=== PATIENT | male | born 1990 | race Hispanic/Latino ===

== ENCOUNTER 2017-06-15 18:03 | Emergency (ER) | payer BC ==
[2017-06-15 18:47] VITALS: TEMP 98; O2SAT 100
--- NOTE | 2017-06-15 19:19 | ED PDOC ---
HPI: General Adult Time Seen by Provider: 06/15/17 19:17 Chief Complaint (Nursing): Dizziness/Lightheaded Chief Complaint (Provider): dizziness History Per: Patient Additional Complaint(s): 27-year-old male presents to emergency department with intermittent dizziness that started 3 weeks ago. Patient denies any associated fever or chills. He has had intermittent headaches as well. Patient has had mild nasal and sinus congestion. He denies chest pain, shortness of breath or dyspnea on exertion. No associated nausea, vomiting, abdominal pain or diarrhea. Patient was seen yesterday at [facility] urgent care and had lab work obtained which was normal as per patient. He was instructed to obtain CT head for further evaluation. Patient was given a prescription for CT head to be completed as an outpatient but he decided to come to the ER today for "a second opinion." Patient feels mildly dizzy upon arrival, denies any vision changes, nausea, fever or chills. Patient states on occasion he has sensation of room spinning. PMD: none Past Medical History Reviewed: Historical Data, Nursing Documentation, Vital Signs Vital Signs: Last Vital Signs Temp 98.0 F 06/15/17 18:42 Pulse 61 06/15/17 18:42 Resp 16 06/15/17 18:42 BP 133/85 06/15/17 18:42 Pulse Ox 100 06/15/17 21:07 - Medical History PMH: No Chronic Diseases - Surgical History Surgical History: No Surg Hx - Family History Family History: States: No Known Family Hx - Living Arrangements Living Arrangements: With Family - Social History Current smoker - smoking cessation education provided: No Alcohol: Social Drugs: Denies - Home Medications Home Medications: Ambulatory Orders Medication Instructions Recorded Meclizine [Meclizine*] 25 mg PO Q6 PRN #30 tab 06/15/17 - Allergies Allergies/Adverse Reactions: Allergies Allergy/AdvReac Type Severity Reaction Status Date / Time shrimp Allergy RASH Verified 06/15/17 18:42 Review of Systems ROS Statement: Except As Marked, All Systems Reviewed And Found Negative Constitutional: Negative for: Fever, Chills, Weakness, Malaise ENT: Positive for: Nose Congestion (and sinus congestion). Negative for: Ear Pain Cardiovascular: Negative for: Chest Pain, Palpitations, Edema, Light Headedness Respiratory: Negative for: Cough, Shortness of Breath, SOB with Exertion, Wheezing Gastrointestinal: Negative for: Nausea, Vomiting Neurological: Positive for: Headache, Dizziness. Negative for: Weakness, Numbness, Incoordination, Change in Speech, Confusion, Seizures, Altered Mental Status Physical Exam - Reviewed Nursing Documentation Reviewed: Yes Vital Signs Reviewed: Yes - Physical Exam Appears: Positive for: Well, Non-toxic, No Acute Distress Skin: Negative for: Rash Eye Exam: Positive for: Normal appearance ENT: Positive for: Nasal Congestion (mild nasal and sinus congestion noted) Neck: Positive for: Normal Cardiovascular/Chest: Positive for: Regular Rate, Rhythm Respiratory: Positive for: Normal Breath Sounds. Negative for: Respiratory Distress Extremity: Positive for: Normal ROM Neurologic/Psych: Positive for: Alert, business solutions consultant II-XII (grossly intact), Oriented, Gait (steady). Negative for: Motor/Sensory Deficits, Aphasia, Facial Droop - Laboratory Results Result Diagrams: 06/15/17 20:50 06/15/17 20:50 - ECG Interpretation Of ECG: Sinus bradycardia 56 bpm, no acute finding, reviewed by PA and ED attending O2 Sat by Pulse Oximetry: 100 Pulse Ox Interpretation: Normal - Other Rad CT head X-Ray: Read By Radiologist X-Ray Interpretation: no acute intracranial pathology CXR X-Ray: Interpreted by Me, Viewed By Me X-Ray Interpretation: no acute finding Medical Decision Making Medical Decision Makin-year-old male with intermittent dizziness for 3 weeks Plan: EKG CXR CBC CMP IVF CT head PO meclizine Patient reports improvement to dizziness after meclizine. Patient aware of all diagnostic testing results, all questions answered. Prescription for meclizine given. Patient was advised to follow up with primary care doctor. Disposition - Clinical Impression Clinical Impression: Dizziness, Acute labyrinthitis - Patient ED Disposition Is Patient to be Admitted: No Counseled Patient/Family Regarding: Studies Performed, Diagnosis, Need For Followup, Rx Given - Disposition Referrals: Sagar Roberson MD [Staff Provider] - Disposition: Routine/Home Disposition Time: 21:45 Condition: STABLE Additional Instructions: Take prescription meds as directed as needed for dizziness. Follow-up with primary doctor for further evaluation. Prescriptions: Meclizine [Meclizine*] 25 mg PO Q6 PRN #30 tab PRN Reason: Dizziness Instructions: Labyrinthitis, Dizziness, Nonvertigo, (DC) Forms: Client Outlook (Estonian) Results - Lab Results Lab Results: 06/15/17 06/15/17 20:50 20:50 WBC 7.7 RBC 5.38 Hgb 15.7 Hct 46.7 MCV 87.0 MCH 29.3 MCHC 33.7 RDW 12.5 Plt Count 167 MPV 10.8 Neut % (Auto) 57.4 Lymph % (Auto) 31.3 [place]comb % (Auto) 8.1 Eos % (Auto) 2.2 Baso % (Auto) 1.0 Neut # (Auto) 4.4 Lymph # (Auto) 2.4 [place]comb # (Auto) 0.6 Eos # (Auto) 0.2 Baso # (Auto) 0.1 Sodium 141 Potassium 4.1 Chloride 97 L Carbon Dioxide 30 Anion Gap 18 BUN 21 H Creatinine 0.9 Est GFR ( Amer) > 60 Est GFR (Non-Af Amer) > 60 Random Glucose 93 Calcium 9.7 Total Bilirubin 0.6 AST 32 ALT 37 Alkaline Phosphatase 60 Troponin I < 0.0120 Total Protein 8.2 Albumin 4.7 Globulin 3.5 Albumin/Globulin Ratio 1.4
[2017-06-15] MEDS ORDERED: Sodium Chloride 0.9% 1,000 ML IV STA (19:39)
--- NOTE | 2017-06-15 20:59 | CT ---
EXAM: CT Head Without Intravenous Contrast CLINICAL HISTORY: 27 years old, male; Pain and signs and symptoms; Dizziness; Headache; Headache not specified; Additional info: Dizziness, headahce TECHNIQUE: Axial computed tomography images of the head/brain without intravenous contrast. All CT scans at this facility use one or more dose reduction techniques, viz.: automated exposure control; ma/kV adjustment per patient size (including targeted exams where dose is matched to indication; i.e. head); or iterative reconstruction technique. Coronal and sagittal reformatted images were created and reviewed. COMPARISON: No relevant prior studies available. FINDINGS: Brain: No intracranial hemorrhage. No mass. No definite edema. Ventricles: No hydrocephalus. Bones/joints: No acute fracture. Soft tissues: Unremarkable. Sinuses: Scattered mild mucosal thickening. Mastoid air cells: No mastoid effusion. Orbits: Unremarkable as visualized. IMPRESSION: 1. No definite acute intracranial abnormality. 2. Incidental/non-acute findings are described above.
[2017-06-15 21:03] LABS: BASO # 0.1 K/uL (0.0-0.2); EOS # 0.2 K/uL (0.0-0.7); EOS % 2.2 % (0.0-4.0); HEMOGLOBIN 15.7 g/dL (12.0-18.0); LYMPH # 2.4 K/uL (1.0-4.3); LYMPH % 31.3 % (20.0-40.0); MEAN CORPUSCULAR HEMOGLOBIN 29.3 pg (27.0-31.0); MEAN CORPUSCULAR HGB CONC 33.7 g/dL (33.0-37.0); MEAN PLATELET VOLUME 10.8 fl (7.2-11.7); MONO # 0.6 K/uL (0.0-0.8); MONO % 8.1 % (0.0-10.0); NEUT # 4.4 K/uL (1.8-7.0); NEUT % 57.4 % (50.0-75.0); NRBC % 0.1 % (0.0-0.0); RBC 5.38 Mil/uL (4.40-5.90); RED CELL DISTRIBUTION WIDTH 12.5 % (11.5-14.5); WHITE BLOOD COUNT 7.7 K/uL (4.8-10.8)
[2017-06-15 21:14] LABS: ALB/GLOB RATIO 1.4 (1.0-2.1); ALBUMIN 4.7 g/dL (3.5-5.0); ALT/SGPT 37 U/L (21-72); AST/SGOT 32 U/L (17-59); BLOOD UREA NITROGEN 21 mg/dl (9-20); CALCIUM 9.7 mg/dL (8.4-10.2); GFR AFRICAN-AMERICAN > 60; GFR NON-AFRICAN AMERICAN > 60
[2017-06-15 22:10] VITALS: BP 145/88; PULSE 72; RESP 20
--- NOTE | 2017-06-15 23:22 | RAD ---
HISTORY: clearance COMPARISON: No prior. FINDINGS: LUNGS: No active pulmonary disease. PLEURA: No significant pleural effusion identified, no pneumothorax apparent. CARDIOVASCULAR: Normal. OSSEOUS STRUCTURES: No significant abnormalities. VISUALIZED UPPER ABDOMEN: Normal. OTHER FINDINGS: None. IMPRESSION: No acute cardiopulmonary disease appreciated.
--- NOTE | 2017-06-16 18:05 | CARD ---
APPROVED REPORT EKG Measurement Heart [id number] <Conclusion> Sinus bradycardia Otherwise normal ECG
== END 2017-06-15 22:10 | disposition home or self-care (01) ==
LOC: H.ER 18:03
DX: R42 Dizziness and giddiness (principal); H83.09 Labyrinthitis, unspecified ear
CPT/HCPCS: 70450; 71045; 80053; 84484; 85025; 93005; 96360; 99284; J7040

== ENCOUNTER 2018-05-08 04:33 | Inpatient (IN) | payer BC, OTHER ==
[2018-05-08 04:56] VITALS: BMI 26.2
[2018-05-08] MEDS ORDERED: Piperacillin/Tazobact 3.375 GM in Sodium Chloride 0.9% 100 ML IVPB STA (05:10)
[2018-05-08] MEDS ORDERED: Sodium Chloride 0.9% 1,000 ML IV STA (05:11)
[2018-05-08 05:33] LABS: VENOUS BLOOD GAS BASE EXCESS 5.3 mmol/L (0.0-2.0); VENOUS BLOOD GAS PCO2 54 mmHg (40-60); VENOUS BLOOD GAS PO2 24 mm/Hg (30-55); VENOUS BLOOD PH 7.38 (7.32-7.43)
[2018-05-08] MEDS ORDERED: Piperacillin/Tazobact 3.375 gm Inj IVPB ONE (05:34)
--- NOTE | 2018-05-08 05:36 | ED PDOC ---
HPI: Abdomen Time Seen by Provider: 05/08/18 04:58 Chief Complaint (Nursing): Abdominal Pain History Per: Patient History/Exam Limitations: no limitations Onset/Duration Of Symptoms: Days (1) Current Symptoms Are (Timing): Still Present Location Of Pain/Discomfort: RLQ Additional Complaint(s): 23 year old with no PMHx presenting with lower abdominal pain, right sided, states it began 24 hours ago, associated with nausea and decreased appetite. No urinary symptoms. No fevers, chills, vomiting, diarrhea. States he feels like he has to have a BM but cannot go. PMD: [place] Past Medical History Reviewed: Historical Data, Nursing Documentation, Vital Signs Vital Signs: Last Vital Signs Temp 97.7 F 05/08/18 04:56 Pulse 68 05/08/18 04:56 Resp 18 05/08/18 04:56 BP 127/78 05/08/18 04:56 Pulse Ox 100 05/08/18 04:56 - Medical History PMH: No Chronic Diseases - Family History Family History: States: Unknown Family Hx - Home Medications Home Medications: Ambulatory Orders Medication Instructions Recorded RX: No Known Home Med 05/08/18 - Allergies Allergies/Adverse Reactions: Allergies Allergy/AdvReac Type Severity Reaction Status Date / Time shrimp Allergy RASH Verified 05/08/18 04:56 Review of Systems ROS Statement: Except As Marked, All Systems Reviewed And Found Negative Gastrointestinal: Positive for: Nausea, Abdominal Pain Physical Exam - Reviewed Nursing Documentation Reviewed: Yes Vital Signs Reviewed: Yes - Physical Exam Appears: Positive for: Well, Non-toxic, No Acute Distress Head Exam: Positive for: ATRAUMATIC, NORMAL INSPECTION, NORMOCEPHALIC Skin: Positive for: Normal Color, Warm, DRY Eye Exam: Positive for: EOMI, Normal appearance, PERRL ENT: Positive for: Normal ENT Inspection Neck: Positive for: Normal, Painless ROM Cardiovascular/Chest: Positive for: Regular Rate, Rhythm Respiratory: Positive for: CNT, Normal Breath Sounds Gastrointestinal/Abdominal: Positive for: Normal Exam, Soft, Tenderness (RLQ tenderness) Back: Positive for: Normal Inspection Extremity: Positive for: Normal ROM Neurologic/Psych: Positive for: Alert, Oriented - Laboratory Results Result Diagrams: 05/08/18 05:52 05/08/18 05:52 Lab Results: pO2 24 mm/Hg (30-55) L 05/08/18 05:29 VBG pH 7.38 (7.32-7.43) 05/08/18 05:29 VBG pCO2 54 mmHg (40-60) 05/08/18 05:29 VBG HCO3 27.5 mmol/L 05/08/18 05:29 VBG Total CO2 33.6 mmol/L (22-28) H 05/08/18 05:29 VBG O2 Sat (Calc) 45.4 % (40-65) 05/08/18 05:29 VBG Base Excess 5.3 mmol/L (0.0-2.0) H 05/08/18 05:29 VBG Potassium 4.0 mmol/L (3.6-5.2) 05/08/18 05:29 Sodium 136.0 mmol/L (132-148) 05/08/18 05:29 Chloride 102.0 mmol/L (98-107) 05/08/18 05:29 Glucose 129 mg/dL (75-110) H 05/08/18 05:29 Lactate 1.0 mmol/L (0.7-2.1) 05/08/18 05:29 FiO2 21.0 % 05/08/18 05:29 - ECG O2 Sat by Pulse Oximetry: 100 Pulse Ox Interpretation: Normal Medical Decision Making Medical Decision MakinAM Patient presenting with RLQ pain --Most likely appendicitis --Will check labs, CT --Toradol, fluids, ABx --Will re-eval 0700 Patient has acute appendicitis on Ct Case discussed with Dr. Lee Patient NPO, ABx already administered along with IVF Case discussed with Dr. Dumas for admission Disposition - Clinical Impression Clinical Impression: Appendicitis - Patient ED Disposition Is Patient to be Admitted: Yes Discussed With : John Lee - Disposition Disposition Time: 07:00 Condition: STABLE Patient Signed Over To: Fran Gaming
[2018-05-08 06:13] LABS: BASO % 0.2 % (0.0-2.0); EOS % 0.1 % (0.0-4.0); HEMOGLOBIN 15.1 g/dL (12.0-18.0); LYMPH # 0.6 K/uL (1.0-4.3); LYMPH % 4.7 % (20.0-40.0); MEAN CELL VOLUME 87.5 fl (80.0-94.0); MEAN CORPUSCULAR HGB CONC 34.3 g/dL (33.0-37.0); MEAN PLATELET VOLUME 12.2 fl (7.2-11.7); MONO # 0.6 K/uL (0.0-0.8); MONO % 4.6 % (0.0-10.0); NEUT # 11.1 K/uL (1.8-7.0); NEUT % 90.4 % (50.0-75.0); PLATELET COUNT 159 K/uL (130-400); RBC 5.02 Mil/uL (4.40-5.90); RED CELL DISTRIBUTION WIDTH 12.2 % (11.5-14.5); WHITE BLOOD COUNT 12.3 K/uL (4.8-10.8)
[2018-05-08 06:22] LABS: ALB/GLOB RATIO 1.3 (1.0-2.1); ALT/SGPT 51 U/L (21-72); AST/SGOT 51 U/L (17-59); BLOOD UREA NITROGEN 19 mg/dl (9-20); GFR NON-AFRICAN AMERICAN > 60
[2018-05-08] MEDS ORDERED: Sodium Chloride 0.9% 50 ML IV ONE (06:26)
[2018-05-08] MEDS ORDERED: Iohexol 300 100 ML IJ ONE (06:27)
--- NOTE | 2018-05-08 07:48 | CP.PCM.CON ---
<Rj Tamez D - Last Filed: 05/08/18 07:44> History of Present Illness - History of Present Illness History of Present Illness: SURGERY NOTE FOR DR. BURNS Reason:appendicitis 27M presents with abdominal pain. Patient states pain stated yesterday approximately 12 hours ago. He states it was tender in the right lower quadrant initially and that is where the pain currently is. He denies any fevers or chills, states the last time he ate was 12 hours ago. He denies any change in b owel function. PMH: denies PSH: Right knee/right hand ORIF Social: denies tobacco use, does not drink alcohol anymore, did socially prior, denies illicit drugs Allergies: Shrimp Past Patient History - Past Social History Smoking Status: Never Smoked - PSYCHIATRIC Hx Substance Use: No - SURGICAL HISTORY Hx Surgeries: No - ANESTHESIA Hx Anesthesia: No Meds Allergies/Adverse Reactions: Allergies Allergy/AdvReac Type Severity Reaction Status Date / Time shrimp Allergy RASH Verified 05/08/18 04:56 Physical Exam - Constitutional Appears: Non-toxic, No Acute Distress - ENT Exam ENT Exam: Mucous Membranes Moist - Respiratory Exam Respiratory Exam: Clear to Auscultation Bilateral, NORMAL BREATHING PATTERN - Cardiovascular Exam Cardiovascular Exam: REGULAR RHYTHM, +S1, +S2 - GI/Abdominal Exam GI & Abdominal Exam: Soft, Tenderness (right lower quadrant). absent: Distended, Firm, Guarding, Rebound, Rigid - Extremities Exam Extremities exam: Negative for: pedal edema, tenderness - Neurological Exam Neurological exam: Alert, Oriented x3 - Psychiatric Exam Psychiatric exam: Normal Affect, Normal Mood - Skin Skin Exam: Dry, Intact, Normal Color, Warm Results - Vital Signs Recent Vital Signs: Last Vital Signs Temp 98.7 F 05/08/18 07:28 Pulse 61 05/08/18 07:28 Resp 16 05/08/18 07:28 BP 116/65 05/08/18 07:28 Pulse Ox 99 05/08/18 07:28 - Labs Result Diagrams: 05/08/18 05:52 05/08/18 05:52 Labs: Laboratory Results - last 24 hr 05/08/18 05/08/18 05/08/18 05:29 05:52 05:52 WBC 12.3 H D RBC 5.02 Hgb 15.1 Hct 44.0 MCV 87.5 MCH 30.0 MCHC 34.3 RDW 12.2 Plt Count 159 MPV 12.2 H Neut % (Auto) 90.4 H Lymph % (Auto) 4.7 L [place] % (Auto) 4.6 Eos % (Auto) 0.1 Baso % (Auto) 0.2 Neut # (Auto) 11.1 H Lymph # (Auto) 0.6 L [place] # (Auto) 0.6 Eos # (Auto) 0.0 Baso # (Auto) 0.0 pO2 24 L VBG pH 7.38 VBG pCO2 54 VBG HCO3 27.5 VBG Total CO2 33.6 H VBG O2 Sat (Calc) 45.4 VBG Base Excess 5.3 H VBG Potassium 4.0 Sodium 136.0 139 Chloride 102.0 99 Glucose 129 H Lactate 1.0 FiO2 21.0 Potassium 3.9 Carbon Dioxide 28 Anion Gap 16 BUN 19 Creatinine 0.8 Est GFR ( Amer) > 60 Est GFR (Non-Af Amer) > 60 Random Glucose 124 H Calcium 10.0 Total Bilirubin 0.7 AST 51 ALT 51 Alkaline Phosphatase 61 Total Protein 8.6 H Albumin 5.0 Globulin 3.7 Albumin/Globulin Ratio 1.3 Venous Blood Potassium 4.0 Blood Type Antibody Screen BBK History Checked 05/08/18 05:52 WBC RBC Hgb Hct MCV MCH MCHC RDW Plt Count MPV Neut % (Auto) Lymph % (Auto) [place] % (Auto) Eos % (Auto) Baso % (Auto) Neut # (Auto) Lymph # (Auto) [place] # (Auto) Eos # (Auto) Baso # (Auto) pO2 VBG pH VBG pCO2 VBG HCO3 VBG Total CO2 VBG O2 Sat (Calc) VBG Base Excess VBG Potassium Sodium Chloride Glucose Lactate FiO2 Potassium Carbon Dioxide Anion Gap BUN Creatinine Est GFR ( Amer) Est GFR (Non-Af Amer) Random Glucose Calcium Total Bilirubin AST ALT Alkaline Phosphatase Total Protein Albumin Globulin Albumin/Globulin Ratio Venous Blood Potassium Blood Type A POSITIVE Antibody Screen Negative BBK History Checked No verified bt Assessment & Plan - Assessment and Plan (Free Text) Assessment: 27M with acute appendicitis Plan: - NPO - IVF - Pain control - Antibiotics - Plan for OR this AM Further recs discuss with Dr. Saman Tamez, PGY3 <Leo Burns - Last Filed: 05/08/18 10:00> Results - Vital Signs Recent Vital Signs: Last Vital Signs Temp 98.7 F 05/08/18 08:18 Pulse 61 05/08/18 08:18 Resp 16 05/08/18 08:18 BP 116/65 05/08/18 08:18 Pulse Ox 99 05/08/18 07:28 - Labs Result Diagrams: 05/08/18 05:52 05/08/18 05:52 Labs: Laboratory Results - last 24 hr 05/08/18 05/08/18 05/08/18 05:29 05:52 05:52 WBC 12.3 H D RBC 5.02 Hgb 15.1 Hct 44.0 MCV 87.5 MCH 30.0 MCHC 34.3 RDW 12.2 Plt Count 159 MPV 12.2 H Neut % (Auto) 90.4 H Lymph % (Auto) 4.7 L [place] % (Auto) 4.6 Eos % (Auto) 0.1 Baso % (Auto) 0.2 Neut # (Auto) 11.1 H Lymph # (Auto) 0.6 L [place] # (Auto) 0.6 Eos # (Auto) 0.0 Baso # (Auto) 0.0 PT INR APTT pO2 24 L VBG pH 7.38 VBG pCO2 54 VBG HCO3 27.5 VBG Total CO2 33.6 H VBG O2 Sat (Calc) 45.4 VBG Base Excess 5.3 H VBG Potassium 4.0 Sodium 136.0 139 Chloride 102.0 99 Glucose 129 H Lactate 1.0 FiO2 21.0 Potassium 3.9 Carbon Dioxide 28 Anion Gap 16 BUN 19 Creatinine 0.8 Est GFR ( Amer) > 60 Est GFR (Non-Af Amer) > 60 Random Glucose 124 H Calcium 10.0 Total Bilirubin 0.7 AST 51 ALT 51 Alkaline Phosphatase 61 Total Protein 8.6 H Albumin 5.0 Globulin 3.7 Albumin/Globulin Ratio 1.3 Venous Blood Potassium 4.0 Blood Type Antibody Screen BBK History Checked 05/08/18 05/08/18 05:52 07:44 WBC RBC Hgb Hct MCV MCH MCHC RDW Plt Count MPV Neut % (Auto) Lymph % (Auto) [place] % (Auto) Eos % (Auto) Baso % (Auto) Neut # (Auto) Lymph # (Auto) [place] # (Auto) Eos # (Auto) Baso # (Auto) PT 13.2 H INR 1.2 APTT 34.4 pO2 VBG pH VBG pCO2 VBG HCO3 VBG Total CO2 VBG O2 Sat (Calc) VBG Base Excess VBG Potassium Sodium Chloride Glucose Lactate FiO2 Potassium Carbon Dioxide Anion Gap BUN Creatinine Est GFR ( Amer) Est GFR (Non-Af Amer) Random Glucose Calcium Total Bilirubin AST ALT Alkaline Phosphatase Total Protein Albumin Globulin Albumin/Globulin Ratio Venous Blood Potassium Blood Type A POSITIVE Antibody Screen Negative BBK History Checked No verified bt Assessment & Plan - Assessment and Plan (Free Text) Plan: agree with resident consult 27yo M with one day history of right lower quadrant pain worst with any movement. Pain only relieved in ED with pain meds. denies any fever, chills, nausea, vomiting. PSHx: no previous abdominal surgeries PMHx: denies gen: awake, alert, resting comfortably, HEENT: MMM, trachea midline, neck supple no acute respiratory distress abd: soft, ND, no rebound or guarding, +mcburneys a/p 27yo M with acute appendicitis -IVF -IV abx -pain control -to OR for laparoscopic appendectomy possible open. Pt was explained risk and benefits of procedure consent obtained at bedside.
[2018-05-08] MEDS ORDERED: Propofol 10 mg/ml Inj (20 ML) ONE (08:19)
[2018-05-08] MEDS ORDERED: Succinylcholine Chloride 20 mg/ml Syr (5 ml) IV ONE (08:20)
[2018-05-08] MEDS ORDERED: Rocuronium 10 mg/ml (5 ml) ONE (08:20)
[2018-05-08 08:32] LABS: INR 1.2; PROTHROMBIN TIME 13.2 Seconds (9.8-13.1)
[2018-05-08 08:35] LABS: PARTIAL THROMBOPLASTIN TIME 34.4 Seconds (25.6-37.1)
[2018-05-08] MEDS: Bupivacaine 0.5% Inj(30mL) ONE ×2 (09:16→09:47)
[2018-05-08] MEDS ORDERED: Lactated Ringer's 1,000 ML IV ONE (09:17)
[2018-05-08] MEDS: Lactated Ringer's 1,000 ML IV SCH ×2 (10:06→18:00)
--- NOTE | 2018-05-08 10:10 | PCM.SURG1 ---
Surgeon's Initial Post Op Note - Surgeon's Notes Surgeon: MD Saman Sawmill Equipment Operator: Dashawn, PGY3 Pre-Operative Diagnosis: Acute Appendicitis Operative Findings: inflamed appendix Post-Operative Diagnosis: Acute appendicitis Operation Performed: Laparoscopic Appendectomy Specimen/Specimens Removed: Appendix Estimated Blood Loss: EBL {In ML}: 10 Date of Surgery/Procedure: 05/08/18 Time of Surgery/Procedure: 10:10
[2018-05-08] MEDS ORDERED: Morphine 4 MG/ML VIAL IVP PRN (10:11)
[2018-05-08 10:30] LABS: LYMPHOCYTE 6 % (20-50); MONOCYTE 3 % (0-10); NEUTROPHIL 91 % (42-75); PLATELET ESTIMATE NORMAL (NORMAL); TOTAL CELLS COUNTED 100
--- NOTE | 2018-05-08 10:47 | CT ---
Date of service: 05/08/2018 PROCEDURE: CT Abdomen and Pelvis with contrast HISTORY: RLQ pain COMPARISON: None. TECHNIQUE: Contrast dose: 95 mL Omnipaque 300 Radiation dose: Total exam DLP = 475.64 mGy-cm. This CT exam was performed using one or more of the following dose reduction techniques: Automated exposure control, adjustment of the mA and/or kV according to patient size, and/or use of iterative reconstruction technique. FINDINGS: LOWER THORAX: Unremarkable. LIVER: Diffuse hepatic steatosis. No gross lesion or ductal dilatation. GALLBLADDER AND BILE DUCTS: Unremarkable. PANCREAS: Unremarkable. No gross lesion or ductal dilatation. SPLEEN: Unremarkable. ADRENALS: Unremarkable. No mass. KIDNEYS AND URETERS: Unremarkable. No hydronephrosis. No solid mass. VASCULATURE: Unremarkable. No aortic aneurysm. No aortic atherosclerotic calcification or mural plaque present. BOWEL: Unremarkable. No obstruction. No gross mural thickening. APPENDIX: Dilated hyperenhancing appendix measuring up to 9 mm with surrounding inflammatory change. PERITONEUM: Unremarkable. No free fluid. No free air. LYMPH NODES: Unremarkable. No enlarged lymph nodes. BLADDER: Unremarkable. REPRODUCTIVE: Unremarkable. BONES: No acute fracture. OTHER FINDINGS: None. IMPRESSION: Acute uncomplicated appendicitis.
[2018-05-08] MEDS: Piperacillin/Tazobact 3.375 GM in Sodium Chloride 0.9% 100 ML IVPB SCH ×2 (15:38→21:26)
[2018-05-08] MEDS: Oxycodone/Acetaminophen 5/325 mg Tab PO PRN ×2 (15:42→21:25)
[2018-05-08 16:17] VITALS: RESP 20
--- NOTE | 2018-05-08 18:14 | CP.PCM.HP ---
Past Patient History - Past Medical History & Family History Past Medical History?: Yes - Past Social History Smoking Status: Never Smoked - PULMONARY Hx Respiratory Disorders: Yes (bronchitis) - PSYCHIATRIC Hx Substance Use: No - SURGICAL HISTORY Hx Surgeries: No - ANESTHESIA Hx Anesthesia: No Meds Allergies/Adverse Reactions: Allergies Allergy/AdvReac Type Severity Reaction Status Date / Time shrimp Allergy RASH Verified 05/08/18 04:56 Results - Vital Signs Recent Vital Signs: Last Vital Signs Temp 98.2 F 05/08/18 16:00 Pulse 60 05/08/18 16:00 Resp 20 05/08/18 16:00 BP 109/49 L 05/08/18 16:00 Pulse Ox 100 05/08/18 16:00 - Labs Result Diagrams: 05/08/18 05:52 05/08/18 05:52 Labs: Laboratory Results - last 24 hr 05/08/18 05/08/18 05/08/18 05:29 05:52 05:52 WBC 12.3 H D RBC 5.02 Hgb 15.1 Hct 44.0 MCV 87.5 MCH 30.0 MCHC 34.3 RDW 12.2 Plt Count 159 MPV 12.2 H Neut % (Auto) 90.4 H Lymph % (Auto) 4.7 L [place] % (Auto) 4.6 Eos % (Auto) 0.1 Baso % (Auto) 0.2 Neut # (Auto) 11.1 H Lymph # (Auto) 0.6 L [place] # (Auto) 0.6 Eos # (Auto) 0.0 Baso # (Auto) 0.0 Neutrophils % (Manual) 91 H Lymphocytes % (Manual) 6 L Monocytes % (Manual) 3 Platelet Estimate Normal RBC Morphology Normal PT INR APTT pO2 24 L VBG pH 7.38 VBG pCO2 54 VBG HCO3 27.5 VBG Total CO2 33.6 H VBG O2 Sat (Calc) 45.4 VBG Base Excess 5.3 H VBG Potassium 4.0 Sodium 136.0 139 Chloride 102.0 99 Glucose 129 H Lactate 1.0 FiO2 21.0 Potassium 3.9 Carbon Dioxide 28 Anion Gap 16 BUN 19 Creatinine 0.8 Est GFR ( Amer) > 60 Est GFR (Non-Af Amer) > 60 Random Glucose 124 H Calcium 10.0 Total Bilirubin 0.7 AST 51 ALT 51 Alkaline Phosphatase 61 Total Protein 8.6 H Albumin 5.0 Globulin 3.7 Albumin/Globulin Ratio 1.3 Venous Blood Potassium 4.0 Blood Type Antibody Screen BBK History Checked 05/08/18 05/08/18 05:52 07:44 WBC RBC Hgb Hct MCV MCH MCHC RDW Plt Count MPV Neut % (Auto) Lymph % (Auto) [place] % (Auto) Eos % (Auto) Baso % (Auto) Neut # (Auto) Lymph # (Auto) [place] # (Auto) Eos # (Auto) Baso # (Auto) Neutrophils % (Manual) Lymphocytes % (Manual) Monocytes % (Manual) Platelet Estimate RBC Morphology PT 13.2 H INR 1.2 APTT 34.4 pO2 VBG pH VBG pCO2 VBG HCO3 VBG Total CO2 VBG O2 Sat (Calc) VBG Base Excess VBG Potassium Sodium Chloride Glucose Lactate FiO2 Potassium Carbon Dioxide Anion Gap BUN Creatinine Est GFR ( Amer) Est GFR (Non-Af Amer) Random Glucose Calcium Total Bilirubin AST ALT Alkaline Phosphatase Total Protein Albumin Globulin Albumin/Globulin Ratio Venous Blood Potassium Blood Type A POSITIVE Antibody Screen Negative BBK History Checked No verified bt Assessment & Plan (1) Acute appendicitis Status: Acute (2) S/P laparoscopic appendectomy Status: Acute
--- NOTE | 2018-05-08 21:05 | OP ---
PROCEDURE DATE: 05/08/2018 PREOPERATIVE DIAGNOSIS: Acute appendicitis. POSTOPERATIVE DIAGNOSIS: Acute appendicitis. PROCEDURE: Laparoscopic appendectomy. SURGEON: Leo Davison MD GLEASON GEAR GENERATOR: Rj Tamez DO ANESTHESIA: General. IV FLUIDS: Crystalloids. ESTIMATED BLOOD LOSS: 5 mL. INTRAOPERATIVE FINDINGS: Acute appendicitis. SPECIMEN: Appendix. BRIEF HISTORY: This is a 27-year-old male who presented to the ER with one day history of worsening right lower quadrant pain, worse with any type of movement. The patient did not have any other associated symptoms. No nausea, no vomiting, no fevers or chills. The patient is young and healthy. The patient was found to have acute appendicitis on a CT scan. He was given IV antibiotics and prepped for the operating room for laparoscopic appendectomy, possible open. Surgical consent was obtained prior to the procedure. The patient was explained the risks and benefits of procedure, not limited to bleeding, infection, possible abscess formation, injury to surrounding structures. The patient agreed and consent was obtained. DESCRIPTION OF PROCEDURE: On date of procedure, the patient was brought to the operating room and he was placed supine. The patient was then placed under general endotracheal anesthesia. A Hoffman catheter was placed under sterile condition. At this point, the patient was prepped and draped in a usual sterile fashion. The patient was not given any further prophylactic antibiotics as he had already received a dose in the ER. After an adequate timeout, a 5 mm incision was made to the infraumbilical area and using an open Daniel technique, the abdomen was entered. At this point, a 5-mm port was placed into the abdominal cavity and the abdomen was insufflated to 15 mmHg using CO2. The patient tolerated the insufflation well. At this point, a 5-mm laparoscope was inserted into the abdominal cavity. A diagnostic laparoscopy was performed, no gross injury from initial port site insertion was identified. At this point, we placed two additional ports, one 5-mm port to the suprapubic area along with a 10-mm port to the left lower quadrant. All the ports were placed under direct visualization. We then began the operation. We did note an inflamed appendix to the right lower quadrant. The appendix was adherent to the abdominal wall. Prior to beginning our dissection, we did have to lyse an adhesion to the abdominal wall to the right mid abdomen. We then proceeded to identify the appendix. We were able to mobilize the appendix to identify the base. The appendix was grabbed using graspers, and then using a [place] dissector, we were able to create a window at the base of the appendix. At this point, we decided to use an Endo MICAELA 45-mm load to transect the appendix at the base. We then proceeded to transect the mesoappendix using a LigaSure. Once the appendix was isolated, it was placed on an EndoCatch bag. At the point, we proceeded to inspect the right lower quadrant. There was no active bleeding at the staple line. There were no other gross abnormalities seen around the mesentery. We then proceeded to remove the EndoCatch bag under direct visualization. At this point, we used a 0 Vicryl UR-6 stitch to close the fascia at the left lower quadrant wound along with a 0 Vicryl stitch to close the fascia at the umbilicus. We then used a 4-0 Monocryl to reapproximate the laparoscopic incision sites. Local anesthetic was applied to the port sites and Dermabond was placed over the skin incisions. The patient tolerated the procedure well. He was extubated and brought to recovery without any complication. The Hoffman catheter was removed. At the end of the procedure, there was an adequate count to all instruments, lap pads and needles. Leo Davison MD TAE
[2018-05-09 05:57] VITALS: O2SAT 98
[2018-05-09 06:26] LABS: BASO % 0.3 % (0.0-2.0); EOS # 0.1 K/uL (0.0-0.7); EOS % 1.1 % (0.0-4.0); HEMOGLOBIN 12.8 g/dL (12.0-18.0); LYMPH # 1.6 K/uL (1.0-4.3); LYMPH % 23.4 % (20.0-40.0); MEAN CELL VOLUME 90.9 fl (80.0-94.0); MEAN CORPUSCULAR HEMOGLOBIN 29.5 pg (27.0-31.0); MEAN CORPUSCULAR HGB CONC 32.5 g/dL (33.0-37.0); MEAN PLATELET VOLUME 12.2 fl (7.2-11.7); MONO # 0.5 K/uL (0.0-0.8); MONO % 8.1 % (0.0-10.0); NEUT # 4.5 K/uL (1.8-7.0); NEUT % 67.1 % (50.0-75.0); NRBC % 0.1 % (0.0-0.0); RBC 4.33 Mil/uL (4.40-5.90); RED CELL DISTRIBUTION WIDTH 12.2 % (11.5-14.5); WHITE BLOOD COUNT 6.7 K/uL (4.8-10.8)
[2018-05-09 06:32] LABS: BLOOD UREA NITROGEN 10 mg/dl (9-20); CALCIUM 8.5 mg/dL (8.4-10.2); GFR NON-AFRICAN AMERICAN > 60
[2018-05-09] MEDS: Piperacillin/Tazobact 3.375 GM in Sodium Chloride 0.9% 100 ML IVPB SCH ×3 (08:49→11:45)
[2018-05-09] MEDS: Oxycodone/Acetaminophen 5/325 mg Tab PO PRN (08:52)
[2018-05-09 09:01] VITALS: BP 114/63; PULSE 79; TEMP 99.2
--- NOTE | 2018-05-09 09:05 | CP.PCM.PN ---
Subjective - Date & Time of Evaluation Date of Evaluation: 05/09/18 Time of Evaluation: 09:03 - Subjective Subjective: seen at bedside, no overnight events. Pt had a tmax this am of 100.6 currently afebrile. Pt tolerated diet this morning but no nausea or vomiting. +flatus, no BM. Reports incisional pain. Objective - Vital Signs/Intake and Output Vital Signs (last 24 hours): Temp Pulse Resp BP Pulse Ox 99.2 F 79 20 114/63 98 05/09/18 08:30 05/09/18 08:30 05/09/18 08:30 05/09/18 08:30 05/09/18 08:30 - Medications Medications: Current Medications Acetaminophen (Tylenol 325mg Tab) 650 mg PO Q6 PRN PRN Reason: Fever >100.4 F Piperacillin Sod/Tazobactam (Sod 3.375 gm/ Sodium Chloride) 100 mls @ 100 mls/hr IVPB Q6 CHRIS; Protocol Last Admin: 05/09/18 08:50 Dose: 100 mls/hr Lactated Ringer's (Lactated Ringer's) 1,000 mls @ 125 mls/hr IV .Q8H CHRIS Last Admin: 05/08/18 18:00 Dose: 125 mls/hr Morphine Sulfate (Morphine) 4 mg IVP Q4 PRN PRN Reason: Pain, severe (8-10) Ondansetron HCl (Zofran Inj) 4 mg IVP Q4 PRN PRN Reason: Nausea/Vomiting Oxycodone/Acetaminophen (Percocet 5/325 Mg Tab) 1 tab PO Q6 PRN PRN Reason: Pain, moderate (4-7) Stop: 05/11/18 10:12 Last Admin: 05/09/18 08:52 Dose: 1 tab - Labs Labs: 05/09/18 05:19 05/09/18 05:19 PT 13.2 Seconds (9.8-13.1) H 05/08/18 07:44 INR 1.2 05/08/18 07:44 APTT 34.4 Seconds (25.6-37.1) 05/08/18 07:44 - Constitutional Appears: Well, Non-toxic, No Acute Distress - Head Exam Head Exam: ATRAUMATIC, NORMAL INSPECTION, NORMOCEPHALIC - Eye Exam Eye Exam: EOMI, Normal appearance - ENT Exam ENT Exam: absent: Mucous Membranes Dry - GI/Abdominal Exam GI & Abdominal Exam: Soft, Normal Bowel Sounds. absent: Tenderness Additional comments: soft, ND, lap port incisions c/d/i, localized tenderness over incisions - Extremities Exam Extremities Exam: Calf Tenderness, Full ROM Assessment and Plan - Assessment and Plan (Free Text) Assessment: s/o laparoscopic appendectomy -cont diet -monitor for fever -if tolerates lunch and no further fever, pt stable for dc -will dc home on augmentin -percocet prn pain f/u in office with Dr. Davison
--- NOTE | 2018-05-09 10:02 | CP.PCM.DIS ---
Provider - Provider Date of Admission: 05/08/18 07:03 Attending physician: Christin Dumas MD Time Spent in preparation of Discharge (in minutes): 40 Hospital Course - Lab Results Lab Results: Micro Results 05/08/18 05:40 Blood Blood Culture - Preliminary NO GROWTH AFTER 24 HOURS 05/08/18 05:25 Blood Blood Culture - Preliminary NO GROWTH AFTER 24 HOURS Most Recent Lab Values WBC 6.7 K/uL (4.8-10.8) 05/09/18 05:19 RBC 4.33 Mil/uL (4.40-5.90) L 05/09/18 05:19 Hgb 12.8 g/dL (12.0-18.0) D 05/09/18 05:19 Hct 39.4 % (35.0-51.0) 05/09/18 05:19 MCV 90.9 fl (80.0-94.0) D 05/09/18 05:19 MCH 29.5 pg (27.0-31.0) 05/09/18 05:19 MCHC 32.5 g/dL (33.0-37.0) L 05/09/18 05:19 RDW 12.2 % (11.5-14.5) 05/09/18 05:19 Plt Count 144 K/uL (130-400) 05/09/18 05:19 MPV 12.2 fl (7.2-11.7) H 05/09/18 05:19 Neut % (Auto) 67.1 % (50.0-75.0) 05/09/18 05:19 Lymph % (Auto) 23.4 % (20.0-40.0) 05/09/18 05:19 [place] % (Auto) 8.1 % (0.0-10.0) 05/09/18 05:19 Eos % (Auto) 1.1 % (0.0-4.0) 05/09/18 05:19 Baso % (Auto) 0.3 % (0.0-2.0) 05/09/18 05:19 Neut # (Auto) 4.5 K/uL (1.8-7.0) 05/09/18 05:19 Lymph # (Auto) 1.6 K/uL (1.0-4.3) 05/09/18 05:19 [place] # (Auto) 0.5 K/uL (0.0-0.8) 05/09/18 05:19 Eos # (Auto) 0.1 K/uL (0.0-0.7) 05/09/18 05:19 Baso # (Auto) 0.0 K/uL (0.0-0.2) 05/09/18 05:19 Neutrophils % (Manual) 91 % (42-75) H 05/08/18 05:52 Lymphocytes % (Manual) 6 % (20-50) L 05/08/18 05:52 Monocytes % (Manual) 3 % (0-10) 05/08/18 05:52 Platelet Estimate Normal (NORMAL) 05/08/18 05:52 RBC Morphology Normal (NORMAL) 05/08/18 05:52 PT 13.2 Seconds (9.8-13.1) H 05/08/18 07:44 INR 1.2 05/08/18 07:44 APTT 34.4 Seconds (25.6-37.1) 05/08/18 07:44 pO2 24 mm/Hg (30-55) L 05/08/18 05:29 VBG pH 7.38 (7.32-7.43) 05/08/18 05:29 VBG pCO2 54 mmHg (40-60) 05/08/18 05:29 VBG HCO3 27.5 mmol/L 05/08/18 05:29 VBG Total CO2 33.6 mmol/L (22-28) H 05/08/18 05:29 VBG O2 Sat (Calc) 45.4 % (40-65) 05/08/18 05:29 VBG Base Excess 5.3 mmol/L (0.0-2.0) H 05/08/18 05:29 VBG Potassium 4.0 mmol/L (3.6-5.2) 05/08/18 05:29 Sodium 136.0 mmol/L (132-148) 05/08/18 05:29 Chloride 102.0 mmol/L (98-107) 05/08/18 05:29 Glucose 129 mg/dL (75-110) H 05/08/18 05:29 Lactate 1.0 mmol/L (0.7-2.1) 05/08/18 05:29 FiO2 21.0 % 05/08/18 05:29 Sodium 140 mmol/l (132-148) 05/09/18 05:19 Potassium 3.9 MMOL/L (3.6-5.0) 05/09/18 05:19 Chloride 104 mmol/L (98-107) 05/09/18 05:19 Carbon Dioxide 31 mmol/L (22-30) H 05/09/18 05:19 Anion Gap 9 (10-20) L 05/09/18 05:19 BUN 10 mg/dl (9-20) 05/09/18 05:19 Creatinine 1.1 mg/dl (0.8-1.5) 05/09/18 05:19 Est GFR ( Amer) > 60 05/09/18 05:19 Est GFR (Non-Af Amer) > 60 05/09/18 05:19 Random Glucose 97 mg/dL (75-110) 05/09/18 05:19 Calcium 8.5 mg/dL (8.4-10.2) 05/09/18 05:19 Total Bilirubin 0.7 mg/dl (0.2-1.3) 05/08/18 05:52 AST 51 U/L (17-59) 05/08/18 05:52 ALT 51 U/L (21-72) 05/08/18 05:52 Alkaline Phosphatase 61 U/L (38-126) 05/08/18 05:52 Total Protein 8.6 G/DL (6.3-8.2) H 05/08/18 05:52 Albumin 5.0 g/dL (3.5-5.0) 05/08/18 05:52 Globulin 3.7 gm/dL (2.2-3.9) 05/08/18 05:52 Albumin/Globulin Ratio 1.3 (1.0-2.1) 05/08/18 05:52 Venous Blood Potassium 4.0 mmol/L (3.6-5.2) 05/08/18 05:29 Blood Type A POSITIVE 05/08/18 05:52 Antibody Screen Negative 05/08/18 05:52 BBK History Checked No verified bt 05/08/18 05:52 - Hospital Course Hospital Course: 27M presented to ED with acute appendicitis, uncomplicated. Patient went for Laparoscopic appendectomy. Finding included inflammed appendix with inflammatory adhesions to surrounding structures. Patient tolerating PO post op, ready to go home. Discharge Exam - Head Exam Head Exam: ATRAUMATIC, NORMAL INSPECTION, NORMOCEPHALIC - Respiratory Exam Respiratory Exam: NORMAL BREATHING PATTERN - Cardiovascular Exam Cardiovascular Exam: +S1, +S2 - GI/Abdominal Exam GI & Abdominal Exam: Soft. absent: Distended, Firm, Guarding, Rebound, Rigid Additional comments: soft, ND, lap port incisions c/d/i, localized tenderness over incisions - Neurological Exam Neurological exam: Alert Discharge Plan - Follow Up Plan Condition: STABLE Disposition: HOME/ ROUTINE Instructions: Appendectomy, Laparoscopic Surgery (DC) Additional Instructions: Please follow up with surgeon in office in 1-2 weeks May shower but do not bath No heavy lifting for 4 weeks Return to regular diet Referrals: Leo Davison MD [Medical Doctor] -
--- NOTE | 2018-05-09 12:12 | CP.PCM.DIS ---
Provider - Provider Date of Admission: 05/08/18 07:03 Attending physician: Christin Dumas MD Time Spent in preparation of Discharge (in minutes): 30 Diagnosis - Discharge Diagnosis (1) Acute appendicitis Status: Acute (2) S/P laparoscopic appendectomy Status: Acute Hospital Course - Lab Results Lab Results: Micro Results 05/08/18 05:40 Blood Blood Culture - Preliminary NO GROWTH AFTER 24 HOURS 05/08/18 05:25 Blood Blood Culture - Preliminary NO GROWTH AFTER 24 HOURS Most Recent Lab Values WBC 6.7 K/uL (4.8-10.8) 05/09/18 05:19 RBC 4.33 Mil/uL (4.40-5.90) L 05/09/18 05:19 Hgb 12.8 g/dL (12.0-18.0) D 05/09/18 05:19 Hct 39.4 % (35.0-51.0) 05/09/18 05:19 MCV 90.9 fl (80.0-94.0) D 05/09/18 05:19 MCH 29.5 pg (27.0-31.0) 05/09/18 05:19 MCHC 32.5 g/dL (33.0-37.0) L 05/09/18 05:19 RDW 12.2 % (11.5-14.5) 05/09/18 05:19 Plt Count 144 K/uL (130-400) 05/09/18 05:19 MPV 12.2 fl (7.2-11.7) H 05/09/18 05:19 Neut % (Auto) 67.1 % (50.0-75.0) 05/09/18 05:19 Lymph % (Auto) 23.4 % (20.0-40.0) 05/09/18 05:19 [place] % (Auto) 8.1 % (0.0-10.0) 05/09/18 05:19 Eos % (Auto) 1.1 % (0.0-4.0) 05/09/18 05:19 Baso % (Auto) 0.3 % (0.0-2.0) 05/09/18 05:19 Neut # (Auto) 4.5 K/uL (1.8-7.0) 05/09/18 05:19 Lymph # (Auto) 1.6 K/uL (1.0-4.3) 05/09/18 05:19 [place] # (Auto) 0.5 K/uL (0.0-0.8) 05/09/18 05:19 Eos # (Auto) 0.1 K/uL (0.0-0.7) 05/09/18 05:19 Baso # (Auto) 0.0 K/uL (0.0-0.2) 05/09/18 05:19 Neutrophils % (Manual) 91 % (42-75) H 05/08/18 05:52 Lymphocytes % (Manual) 6 % (20-50) L 05/08/18 05:52 Monocytes % (Manual) 3 % (0-10) 05/08/18 05:52 Platelet Estimate Normal (NORMAL) 05/08/18 05:52 RBC Morphology Normal (NORMAL) 05/08/18 05:52 PT 13.2 Seconds (9.8-13.1) H 05/08/18 07:44 INR 1.2 05/08/18 07:44 APTT 34.4 Seconds (25.6-37.1) 05/08/18 07:44 pO2 24 mm/Hg (30-55) L 05/08/18 05:29 VBG pH 7.38 (7.32-7.43) 05/08/18 05:29 VBG pCO2 54 mmHg (40-60) 05/08/18 05:29 VBG HCO3 27.5 mmol/L 05/08/18 05:29 VBG Total CO2 33.6 mmol/L (22-28) H 05/08/18 05:29 VBG O2 Sat (Calc) 45.4 % (40-65) 05/08/18 05:29 VBG Base Excess 5.3 mmol/L (0.0-2.0) H 05/08/18 05:29 VBG Potassium 4.0 mmol/L (3.6-5.2) 05/08/18 05:29 Sodium 136.0 mmol/L (132-148) 05/08/18 05:29 Chloride 102.0 mmol/L (98-107) 05/08/18 05:29 Glucose 129 mg/dL (75-110) H 05/08/18 05:29 Lactate 1.0 mmol/L (0.7-2.1) 05/08/18 05:29 FiO2 21.0 % 05/08/18 05:29 Sodium 140 mmol/l (132-148) 05/09/18 05:19 Potassium 3.9 MMOL/L (3.6-5.0) 05/09/18 05:19 Chloride 104 mmol/L (98-107) 05/09/18 05:19 Carbon Dioxide 31 mmol/L (22-30) H 05/09/18 05:19 Anion Gap 9 (10-20) L 05/09/18 05:19 BUN 10 mg/dl (9-20) 05/09/18 05:19 Creatinine 1.1 mg/dl (0.8-1.5) 05/09/18 05:19 Est GFR ( Amer) > 60 05/09/18 05:19 Est GFR (Non-Af Amer) > 60 05/09/18 05:19 Random Glucose 97 mg/dL (75-110) 05/09/18 05:19 Calcium 8.5 mg/dL (8.4-10.2) 05/09/18 05:19 Total Bilirubin 0.7 mg/dl (0.2-1.3) 05/08/18 05:52 AST 51 U/L (17-59) 05/08/18 05:52 ALT 51 U/L (21-72) 05/08/18 05:52 Alkaline Phosphatase 61 U/L (38-126) 05/08/18 05:52 Total Protein 8.6 G/DL (6.3-8.2) H 05/08/18 05:52 Albumin 5.0 g/dL (3.5-5.0) 05/08/18 05:52 Globulin 3.7 gm/dL (2.2-3.9) 05/08/18 05:52 Albumin/Globulin Ratio 1.3 (1.0-2.1) 05/08/18 05:52 Venous Blood Potassium 4.0 mmol/L (3.6-5.2) 05/08/18 05:29 Blood Type A POSITIVE 05/08/18 05:52 Antibody Screen Negative 05/08/18 05:52 BBK History Checked No verified bt 05/08/18 05:52 Discharge Exam - Head Exam Head Exam: ATRAUMATIC, NORMAL INSPECTION, NORMOCEPHALIC - Eye Exam Eye Exam: EOMI, Normal appearance, PERRL Pupil Exam: NORMAL ACCOMODATION, PERRL - Cardiovascular Exam Cardiovascular Exam: +S1, +S2 - GI/Abdominal Exam GI & Abdominal Exam: Normal Bowel Sounds Additional comments: LAp surgica site tender. - Neurological Exam Neurological exam: Alert, CN II-XII Intact, Normal Gait, Oriented x3, Reflexes Normal - Psychiatric Exam Psychiatric exam: Normal Affect, Normal Mood - Skin Skin Exam: Dry, Intact, Normal Color, Warm Discharge Plan - Follow Up Plan Condition: STABLE Disposition: HOME/ ROUTINE Instructions: Appendectomy, Laparoscopic Surgery (DC) Additional Instructions: Please follow up with surgeon in office in 1-2 weeks May shower but do not bath No heavy lifting for 4 weeks Return to regular diet Referrals: Leo Davison MD [Medical Doctor] -
== END 2018-05-09 13:00 | disposition home or self-care (01) | DRG 343 ==
LOC: H.ER 04:33 → H.ERHOLD 07:03 → H.PEDS 11:30
PROVIDERS: ADMIT Internal Medicine; ATTEND Internal Medicine
PROC: 0DTJ4ZZ Resection of Appendix, Percutaneous Endoscopic Approach (ICD-10-PCS; principal; 2018-05-08 08:15)
DX: K35.80 Unspecified acute appendicitis (principal); K66.0 Peritoneal adhesions (postprocedural) (postinfection); Z91.013 Allergy to seafood